=== PATIENT | male | born 1985 | race Caucasian/White ===

== ENCOUNTER 2025-09-29 18:49 | Emergency (ER) | payer OTHER | END 2025-09-29 20:30 | disposition home or self-care (01) | LOC: BURERS 18:49 | DX: S40.011A Contusion of right shoulder, initial encounter (principal); W10.9XXA Fall (on) (from) unspecified stairs and steps, initial encounter; Y93.01 Activity, walking, marching and hiking | CPT/HCPCS: 99283 ==